=== PATIENT | male | born 1970 | race Caucasian/White ===

== ENCOUNTER 2016-10-12 03:57 | Emergency (ER) | payer SELFPAY ==
[~2016-10-12] VITALS: Ht 175.3 cm; Wt 72.6 kg
[~2016-10-12 03:57] MED LIST: ACETAMINOPHEN PO; ALBUTEROL MININEB NEB; ASPIRIN81 MG PO; ATIVAN PO; BACTRIM DS TABL1 TAB PO; BENADRYL PO; COMBIVENT14.7 GM INH; FAMOTIDINE PO; FLEXERIL PO; HUMIBID1200 MG PO; KEFLEX PO; KEFLEX500 MG PO; LEVAQUIN PO; LEVAQUIN750 M1 PO; LYRICA; MEDROL4 MG/DOSE- PO; METHADOSE PO; NICOTINE TRANSD21 MG EXT; NO MEDICATIONS; OMNICEF300 MG PO; OXYCONTIN PO; OXYCONTIN30 MG PO; OXYCONTIN60 MG PO; PERCOCET 10/3251 TAB PO; PERCOCET10; PREDNISONE PO; PREDNISONE50 MG PO; PROVENTIL INH0.5 ML HHN; PROVENTIL INH0.5 ML NEB; PROVENTIL17 GM IH; ROBAXIN 750750 MG PO; SPIRIVA18 MCG INH; SYMBICORT INH; ULTRAM PO; VICODIN 5/1 TAB 5/50 PO; VICODIN 5/500 T1 TAB PO; ZANTAC PO; ZITHROMAX500 MG PO
== END 2016-10-12 05:09 | disposition home or self-care (01) ==
LOC: SED 03:57
DX: L25.8 Unspecified contact dermatitis due to other agents (principal); J44.9 Chronic obstructive pulmonary disease, unspecified; Z91.030 Bee allergy status; Z88.5 Allergy status to narcotic agent
CPT/HCPCS: 96372; 99282; J2930